=== PATIENT | female | born 1980 | race Caucasian/White ===

== ENCOUNTER 2017-06-13 12:20 | Emergency (ER) | payer OTHER ==
[~2017-06-13] VITALS: Ht 157.5 cm; Wt 111.1 kg
[2017-06-13] MEDS ORDERED: JANUMET XR 50-1 EAC1 ORAL (12:29)
[2017-06-13] MEDS ORDERED: LISINOPRIL10 MG ORAL (12:29)
[2017-06-13] MEDS ORDERED: GLIPIZIDE5 MG ORAL (12:29)
[2017-06-13 12:30] VITALS: BP 112/78
--- NOTE | 2017-06-13 13:03 | Emergency Room Report ---
History of Present Illness General Chief Complaint: Headache Source: Patient Present Illness HPI 36-year-old female presents to the emergency department complaining of 6 out of 10 in severity left-sided progressive throbbing headache that she describes to be or icterus tic of her typical migraines. Patient states that she has a history of significant migraines with aura. Patient reports nausea, vomiting and photophobia. Patient denies fevers, chills, recent fall or head trauma. She states that she has had extensive workups with her neurologist and has no relief from multiple prescription migraine medications. Patient states that she is now currently prescribed butorphanol nasal spray for migraine rescue. Patient states that her neurologist recently moved his practice to light and on the entire and she now has to establish herself with a new neurologist. Patient states in the meantime she is now out of her previously prescribed medications for migraine. Patient also states that she takes Lexapro daily for migraine prevention, and has history of thickened uterine wall causing significant pain and cramping regularly. pt. states that when required to visit emergency department for intractable pain of her migraine she typically requires IV morphine ordered along with Phenergan. Denies CP, Palpitations, LOC , AMS, dizziness, Changes in Vision, Sensation, paresthesias, or a sudden severe headache, or changes in character to her previous migraine presentations. Allergies: Coded Allergies: METOCLOPRAMIDE (Verified Allergy, Unknown, 06/13/17) NSAIDS (NON-STEROIDAL ANTI-INFLAMMA (Verified Allergy, Unknown, 06/13/17) Patient History Past Medical History: see triage record, migraines Past Surgical History: none Pertinent Family History: none Last Menstrual Period: 04/06/17 Immunizations: UTD Reviewed Nursing Documentation: PMH: Agreed, PSxH: Agreed Nursing Documentation-PMH Past Medical History: No History, Except For Hx Diabetes: Yes Review of Systems All Other Systems: negative except mentioned in HPI Physical Exam Vital Signs Date Time Temp Pulse Resp B/P (MAP) Pulse Ox O2 Delivery O2 Flow Rate FiO2 06/13/17 12:25 98.1 99 18 112/78 98 Room Air Sp02 EP Interpretation: reviewed, normal General Appearance: alert, GCS 15, non-toxic, mild distress Head: normocephalic, atraumatic Eyes: bilateral eye normal inspection, bilateral eye PERRL ENT: hearing grossly normal, no angioedema, normal voice Neck: full range of motion, no meningismus Respiratory: chest non-tender, lungs clear, normal breath sounds, no respiratory distress, speaking full sentences Cardiovascular #1: regular rate, rhythm Gastrointestinal: normal bowel sounds, non tender, soft Rectal: deferred Musculoskeletal: back normal, gait/station normal, normal range of motion, non- tender Neurologic: alert, oriented x3, responsive, motor strength/tone normal, sensory intact, normal gait, speech normal, no pronator, other - no facial droop , equall social media strategist strength, grossly normal Psychiatric: other - displays opiate seeking behavior. Skin: normal color, no rash, warm/dry, well hydrated Medical Decision Making PA Attestation Dr. Rodriguez is my supervising Physician whom patient management has been discussed with. Diagnostic Impression: Primary Impression: Headache Qualified Codes: R51 - Headache Additional Impressions: Drug-seeking behavior Physical tolerance to opiate drug ER Course 36-year-old female presents to the emergency department complaining of 6 out of 10 in severity left-sided progressive throbbing headache that she describes to be or icterus tic of her typical migraines. Patient states that she has a history of significant migraines with aura. Patient reports nausea, vomiting and photophobia. Patient denies fevers, chills, recent fall or head trauma. She states that she has had extensive workups with her neurologist and has no relief from multiple prescription migraine medications. Patient states that she is now currently prescribed butorphanol nasal spray for migraine rescue. Patient states that her neurologist recently moved his practice to [place] and on the entire and she now has to establish herself with a new neurologist. Patient states in the meantime she is now out of her previously prescribed medications for migraine. Patient also states that she takes Lexapro daily for migraine prevention, and has history of thickened uterine wall causing significant pain and cramping regularly. pt. states that when required to visit emergency department for intractable pain of her migraine she typically requires IV morphine ordered along with Phenergan. Denies CP, Palpitations, LOC , AMS, dizziness, Changes in Vision, Sensation, paresthesias, or a sudden severe headache, or changes in character to her previous migraine presentations. describes typical migraine, currently out of butorphanol nasal spray, and her Neurologist has moved his practice, so she needs to establish with a new neurologist. Ddx considered but are not limited to migraine, SAH, Psedudo motor Cerebri, Mass lesion, Cluster MALONE, Tension MALONE, CVA, Post lumbar puncture MALONE just to name a few. Vital signs: are WNL, pt. is afebrile H&PE are most consistent with migraine headache ORDERS: -UA: Unremarkable -Urine Hcg: Negative ED INTERVENTIONS: -1 gram Mag Sulfate IV -1 Liter NS Bolus -4mg zofran IV -Pt. able to tolerate oral fluids now. Patient habitually wants to discuss her need for specific narcotic medications to control her pain, and providing excessive detail that she will be without medications in the meantime while awaiting her neurology and pain management appointments. Discussed with patient and reiterated multiple times that she will require either a refill from her previous neurologist or to contact her new neurologist or pain management for a sooner appointment as I will not be refilling specialty narcotic medications such as Butorphanol nasal spray and oral Dilaudid, I also educated the pt. that the national neurology society recommends against the use of opiates/narcotic for the management of Migraines. I discussed with this patient that I will do my best to control her pain and make her comfortable at this time however my primary concern is to rule out any emergent condition, and if one does not exist she will need to followup as an outpatient. I offered this patient multiple standard of care her migraine medications for which she repeatedly denied stating they don't work, she has moderate side effects, or has allergy. -D/W pt. to follow up with Neurology in 3-5 days, or return to the ED with worsening or new symptoms. - Pt. was noted to ambulate to the discharge registration window, and exit the ED in no acute distress. DISCHARGE: At this time pt. is stable for d/c to home. Will provide printed patient care instructions, and any necessary prescriptions. Care plan and follow up instructions have been discussed with the patient prior to discharge. Labs Test 06/13/17 13:34 Urine Color Pale yellow Urine Appearance Clear Urine pH 5 (4.5-8.0) Urine Specific [place] 1.025 (1.005-1.035) Urine Protein Negative (NEGATIVE) Urine Glucose (UA) Negative (NEGATIVE) Urine Ketones Negative (NEGATIVE) Urine Occult Blood Negative (NEGATIVE) Urine Nitrite Negative (NEGATIVE) Urine Bilirubin Negative (NEGATIVE) Urine Urobilinogen Normal MG/DL (0.0-1.0) Urine Leukocyte Esterase 2+ (NEGATIVE) Urine RBC 0-2 /HPF (0 - 2) Urine WBC 2-4 /HPF (0 - 2) Urine Squamous Epithelial Cells Few /LPF (NONE/OCC) Urine Bacteria Few /HPF (NONE) Urine HCG, Qualitative Negative Last Vital Signs Date Time Temp Pulse Resp B/P (MAP) Pulse Ox O2 Delivery O2 Flow Rate FiO2 06/13/17 12:25 98.1 99 18 112/78 98 Room Air Disposition: HOME, SELF-CARE Condition: Stable Scripts Ondansetron Odt* (ZOFRAN ODT*) 4 Mg Tab.rapdis 4 MG ORAL Q6H Y for Nausea & Vomiting, #20 TAB Prov: Ledy Suarez 06/13/17 Patient Instructions: Migraine Headache Additional Instructions: Take medications as directed. Follow up with your NEUROLOGIST IN 3 days, even if your symptoms have resolved. Return sooner to ED if new symptoms occur, or current symptoms become worse. - Please note that this Emergency Department Report was dictated using [employer] operator technology software, occasionally this can lead to erroneous entry secondary to interpretation by the dictation equipment. Ledy Suarez Jun 13, 2017 13:03
[2017-06-13] MEDS ORDERED: Morphine Sulfate 4mg/ml Inj IVP ONE (13:15)
[2017-06-13 14:08] LABS: APPEARANCE,URINE CLEAR; KETONES,URINE NEGATIVE (NEGATIVE); LEUKOCYTE ESTERASE ,URINE 2+ (NEGATIVE); NITRITE,URINE NEGATIVE (NEGATIVE); PH,URINE 5 (4.5-8.0); PROTEIN,URINE NEGATIVE (NEGATIVE); UROBILINOGEN,URINE NORMAL MG/DL (0.0-1.0)
[2017-06-13 14:28] LABS: BACTERIA,URINE FEW /HPF; RBC,URINE 0-2 /HPF (0 - 2); SQUAMOUS EPITHELIAL CELL,UR FEW /LPF (NONE/OCC)
[2017-06-13 14:30] VITALS: BP 119/81
[2017-06-13] MEDS ORDERED: ZOFRAN ODT4 MG ORAL (15:39)
[2017-06-13 15:45] VITALS: BP 109/71
== END 2017-06-13 15:45 | disposition home or self-care (01) ==
LOC: EMR 13:07
DX: R51 Headache (principal); Z76.5 Malingerer [conscious simulation]; Z88.6 Allergy status to analgesic agent; E11.9 Type 2 diabetes mellitus without complications
CPT/HCPCS: 81003; 81025; 96361; 96374; 96375; 99284; J2270; J2405